=== PATIENT | male | born 1965 | race Caucasian/White ===

== ENCOUNTER 2019-08-26 13:59 | Emergency (ER) | payer OTHER ==
[~2019-08-26] VITALS: Ht 172.7 cm; Wt 90.7 kg
[~2019-08-26 13:59] MED LIST: NORCO 5-325 TA1 EACH PO; ZOFRAN ODT4 MG PO
[2019-08-26] MEDS ORDERED: FLEXERIL PO (16:39)
[2019-08-26] MEDS ORDERED: IBUPROFEN 800800 M1 PO (16:39)
[2019-08-26 17:03] VITALS: BP 128/87
== END 2019-08-26 17:04 ==
LOC: M.ERS 13:59
DX: S29.012A Strain of muscle and tendon of back wall of thorax, initial encounter (principal); S20.211A Contusion of right front wall of thorax, initial encounter; Z89.511 Acquired absence of right leg below knee; Y04.0XXA Assault by unarmed brawl or fight, initial encounter; Y93.89 Activity, other specified; Y92.89 Other specified places as the place of occurrence of the external cause; Y99.8 Other external cause status

== ENCOUNTER 2020-01-12 09:44 | Emergency (ER) | payer OTHER ==
[~2020-01-12] VITALS: Ht 172.7 cm; Wt 89.4 kg
[~2020-01-12 09:44] MED LIST changes: +FLEXERIL PO; +IBUPROFEN 800800 M1 PO
[2020-01-12] MEDS ORDERED: NORCO 5-325 TA1 EAC1 PO (10:58)
[2020-01-12] MEDS ORDERED: NAPROSYN500 MG PO (10:58)
[2020-01-12] MEDS ORDERED: ZANAFLEX4 MG PO (10:58)
[2020-01-12] MEDS ORDERED: MEDROLDOSEPACK PO (10:58)
[2020-01-12 11:09] VITALS: BP 158/96
== END 2020-01-12 11:10 | disposition home or self-care (01) ==
LOC: M.ERS 09:44
DX: M25.552 Pain in left hip (principal); F17.210 Nicotine dependence, cigarettes, uncomplicated

== ENCOUNTER 2020-08-26 00:04 | Emergency (ER) | payer OTHER ==
[~2020-08-26] VITALS: Ht 172.7 cm; Wt 90.7 kg
[~2020-08-26 00:04] MED LIST changes: +MEDROLDOSEPACK PO; +NAPROSYN500 MG PO; +NORCO 5-325 TA1 EAC1 PO; +ZANAFLEX4 MG PO
[2020-08-26 00:21] LABS: URINE BLOOD 3+ (Negative); URINE CLARITY CLOUDY; URINE COLOR RED; URINE GLUCOSE-RANDOM NEGATIVE (Negative); URINE KETONES 2+ (Negative); URINE LEUKOCYTES-REFLEX TRACE (Negative); URINE PROTEIN 2+ (Negative)
[2020-08-26 00:49] LABS: URINE BILIRUBIN 1+ (Negative); URINE NITRITE-REFLEX POSITIVE (Negative)
[2020-08-26 00:50] LABS: ICTOTEST (BILI CONFIRMATORY) Negative (Negative)
[2020-08-26 01:16] LABS: CASTS None Seen /LPF (None Seen); SQUAMOUS NONE SEEN /LPF (0-3)
[2020-08-26 01:17] LABS: URINE RBC >20 Many /HPF (0-2); URINE WBC-REFLEX 0-5 Rare /HPF (0-5)
[2020-08-26 01:18] LABS: BACTERIA-REFLEX 1-9 Few /HPF (None Seen); CRYSTALS None Seen /LPF (None Seen)
[2020-08-26] MEDS ORDERED: HYDROCODON-ACE1 EAC8 PO (01:32)
[2020-08-26] MEDS ORDERED: ZOFRAN ODT4 MG PO (01:32)
[2020-08-26 01:45] VITALS: BP 150/80
== END 2020-08-26 01:45 | disposition home or self-care (01) ==
LOC: M.ERS 00:04
PROVIDERS: Emergency Medicine
DX: N23 Unspecified renal colic (principal); K21.9 Gastro-esophageal reflux disease without esophagitis